=== PATIENT | male | born 1995 | race Two or more races ===

== ENCOUNTER 2024-12-26 10:29 | Emergency (ER) | payer MEDICAID, SELFPAY ==
[2024-12-26 10:46] VITALS: BP 146/95; PULSE 83; RESP 16; TEMP 36.9; O2SAT 99
--- NOTE | 2024-12-26 11:07 | XR_ITS ---
Examination: Bilateral hands, 4 views. Technique: AP, lateral each in total 4 views Date and time of exam: December 27, 1999 2513 hours INDICATION: Punching injury to the hands today, bilateral hand pain. FINDINGS: Suspicious for acute nondisplaced fracture distal right fifth metacarpal Old deformity left fifth metacarpal No foreign body IMPRESSION: Suspicious for acute nondisplaced fracture distal right fifth metacarpal
--- NOTE | 2024-12-26 11:07 | XR_ITS ---
Examination: Bilateral wrists 4 views TECHNIQUE: AP lateral right left wrist total 4 views Presented time: December 26, 2024 1115 hours INDICATIONS: Injury to both wrists today, bilateral wrist pain FINDINGS: Suspicious for nondisplaced fracture distal right fifth metacarpal without displacement Bilateral carpal bones intact No foreign bodies IMPRESSION: Suspicious for acute nondisplaced fracture distal fifth right metacarpal
[2024-12-26] MEDS: ACETAMINOPHEN 500 MG TABLET 1000 MG PO (11:21)
[2024-12-26] MEDS: IBUPROFEN TAB 400 MG TABLET 800 MG PO (11:21)
--- NOTE | 2024-12-26 12:21 | EDNOTE_ITS ---
Upper Extremity Injury RME/HPI General Chief Complaint: Hand/Wrist Problems Stated Complaint: R) HAND INJURY;GOT MAD & STARTED PUNCHING THE WALL Time Seen by Provider: 12/26/24 10:51 Arrival date/time: 12/26/24 10:29 This is a 29-year-old male that comes in with complaints of bilateral hand pain after punching a wall in a door. Patient denies any other injuries. Patient has more pain to his right dorsal hand. Limitations: no limitations Related Data Previous Rx's ?Medication ?Instructions ?Recorded ibuprofen 800 mg tablet 800 mg PO Q6H PRN pain #14 t abs 12/26/24 Allergies Allergy/AdvReac Type Severity Reaction Status Date / Time No Known Allergies Allergy Verified 12/26/24 10:33 Review of Systems Review of Systems Systems Reviewed: All systems reviewed, normal except as documented Past Medical History Past Medical History CARDIAC: Negative Cardiac Disorders or Congestive Heart Failure RESPIRATORY: Positive Asthma; Negative Chronic Obstructive Pulmonary Disease (COPD) GENITOURINARY: Negative Renal Disease ENDOCRINE: Negative Diabetes Mellitus Type 1 or Diabetes Mellitus Type 2 HEMATOLOGIC: Negative Sickle Cell Disease Social History SMOKING STATUS: Never smoker SUBSTANCE USE: marijuana and crack/cocaine (last used 2 days ago) ED Exam General Limitations: Present no limitations General appearance: Present alert and in no apparent distress Head Head exam: Present atraumatic Eye Eye exam: Present normal appearance, PERRL and EOMI ENT ENT exam: Present normal exam, normal oropharynx and mucous membranes moist Neck Neck exam: Present normal inspection, full ROM and trachea midline Chest Chest inspection: Present normal inspection and symmetric chest wall rise Respiratory Respiratory exam: Present normal lung sounds bilaterally Cardiovascular Cardiovascular exam: Present regular rate and other (cap refill less than 2 seconds ) Abdominal Exam Abdominal exam: Present soft Extremities Exam Extremities exam: Present full ROM and other (no snuffbox tenderness, sensory intact ) Back Exam Back exam: Present normal inspection and full ROM Neurological Exam Neurological exam: Present alert, oriented X3 and CN II-XII intact Psychiatric Psychiatric exam: Present normal affect and normal mood Skin Skin exam: Present warm, dry, intact and normal color Course Quality Measures none Orders Category Date Time Status Splint / Immobilizer STAT Care 12/26/24 13:57 Completed XR hand comp BI min 3V Stat Exams 12/26/24 11:07 Completed XR wrist comp BI min 3V Stat Exams 12/26/24 11:07 Completed Acetaminophen Tab [Tylenol ES Tab] Med 12/26/24 11:06 Discontinued 1,000 mg PO X1 ONE Ibuprofen Tab [Motrin Tab] Med 12/26/24 11:06 Discontinued 800 mg PO X1 ONE Vital Signs Vital signs: Vital Signs Temperature 98.4 F 12/26/24 10:46 Pulse Rate 83 12/26/24 10:46 Respiratory Rate 16 12/26/24 10:46 Blood Pressure 146/95 H 12/26/24 10:46 Pulse Oximetry (%) 99 12/26/24 10:46 Oxygen Delivery Method Room Air 12/26/24 10:46 Extremity Injury MDM Narrative MDM Narrative:: HAND X RAY SHOWS: FINDINGS: Suspicious for acute nondisplaced fracture distal right fifth metacarpal Old deformity left fifth metacarpal No foreign body IMPRESSION: Suspicious for acute nondisplaced fracture distal right fifth metacarpal WRIST X RAy SHOWS : FINDINGS: Suspicious for nondisplaced fracture distal right fifth metacarpal without displacement Bilateral carpal bones intact No foreign bodies IMPRESSION: Suspicious for acute nondisplaced fracture distal fifth right metacarpal I discussed case with he stated he would see patient in his office tomorrow 12/27/2024 at 3 PM. I informed patient of this. I will send patient home. He requested a soft wrist splint. Patient told to follow-up as instru cted come back to the emergency room if symptoms change or worsen. Patient data External records reviewed:: [facility] previous records Clinical information provided by:: none Social determinants that could affect healthcare access:: none Patient has the following chronic illnesses:: none How is presenting disease/condition affected by chronic disease/condition?: no chronic disease Evaluation data The following diagnostics were reviewed and interpreted by me:: radiology exam(s) Lab and/or radiology exams considered but not ordered:: none Interpretation Summary: see note Medications / Prescriptions Medications or Prescriptions considered but not ordered:: none Medication administrations:: Medication Administration History Discontinued Medications Acetaminophen (Acetaminophen 500 Mg Tablet) 1,000 mg PO X1 ONE Stop: 12/26/24 11:07 Last Admin: 12/26/24 11:21 Dose: 1,000 mg Documented By: JASMINE Ibuprofen (Ibuprofen Tab 400 Mg Tablet) 800 mg PO X1 ONE Stop: 12/26/24 11:07 Last Admin: 12/26/24 11:21 Dose: 800 mg Documented By: JASMINE see mar Consultations Consultation(s) initiated? (list below): No Diagnosis Upper Extremity Injury Differential Diagnosis: sprain and strain of wrist, fracture of wrist and other (Metacarpal fracture. ) Most likely diagnosis given after review of the tests above:: Metacarpal fracture Admission Indicated Admission indicated?: not indicated Admission Request Was there a request for admission?: No Disposition Plan Disposition Plan: Discharge Discharge Attestation Discharge Attestation: The patient and all family members were given an opportunity to ask questions and understood the discharge instructions. Discharge instructions specifically effects, indications for sooner follow up or return to the emergency department, and the expected course of current diagnosis. Patient condition: Stable Discharge Plan Plan Patient Disposition: HOME (Self Care) Patient condition on transfer: Stable Prescriptions/Referrals Prescriptions/Med Rec: New ibuprofen 800 mg tablet 800 mg PO Q6H PRN (Reason: pain) Qty: 14 0RF Referrals: Jose Tse MD [Physician] - (HE WILL SEE YOU IN HIS OFFICE 12/27/24 AT 3PM ) Problem List Clinical Impression: Fracture of metacarpal, Contusion of hand Patient/Caregiver Discharge Instructions Discharge Activity: activity as tolerated Education Materials: Bruises (Contusions) Additional Instructions: Follow up with primary provider in 1-2 days. Come back to ED if symptoms change or worsen. Follow-up in orthopedic doctors office at 3 PM 12/27/2024 Print Language: Faroese Stand Alone Forms: Esme Award Info., Patient Portal Info Letter ANYI/REGINO Supervising Physician [place] Supervising Physician: DANNY
== END 2024-12-26 14:14 | disposition home or self-care (01) ==
PROVIDERS: Emergency Provider Emergency Medicine; PCP Specialist
DX: S62.306A Unspecified fracture of fifth metacarpal bone, right hand, initial encounter for closed fracture (principal); M79.642 Pain in left hand; W22.01XA Walked into wall, initial encounter
CPT/HCPCS: 29126; 73110; 73130; 99283; A9270